=== PATIENT | male | born 1980 | race African-American/Black ===

== ENCOUNTER → 2023-03-31 | Outpatient (CLI) | payer OTHER ==
[2023-04-01 10:07] LABS: ABSOLUTE CD4 COUNT 629 /uL (359-1519); ABSOLUTE CD8 SUPPRESSOR 447 /uL (109-897); CD4:CD8 RATIO 1.41 (0.92-3.72); PERCENT CD8 POS. LYMPH. 26.3 % (12.0-35.5)
[2023-04-01 14:06] LABS: HIV 1-2 SCREEN 4TH GEN W/RFLX Preliminary Reactive (Non Reactive); HIV INTERPRETATION HIV-1 Positive; HIV-1 ANTIBODY(MULTISPOT) Reactive (Non Reactive); HIV-2 ANTIBODY(MULTISPOT) Non Reactive (Non Reactive)
== END | disposition home or self-care (01) ==
LOC: LABMN 07:58
PROVIDERS: ATTEND Chiropractor
DX: B20 Human immunodeficiency virus [HIV] disease (principal)
CPT/HCPCS: 86360; 87389